=== PATIENT | female | born 1960 | race Caucasian/White ===

== ENCOUNTER 2025-04-21 05:05 | Day surgery (SDC) | payer OTHER ==
[2025-04-15 12:51] VITALS: BP 122/80
[~2025-04-21] VITALS: Ht 157.5 cm; Wt 74.8 kg
[~2025-04-21 05:05] MED LIST: ACTOS15 MG; AMBIEN10 MG PO; ATACAND16 MG PO; GLYXAMBI 25 MG1 EACH PO; LIPITOR20 MG; NEURONTIN300 MG PO; PEPCID AC20 MG; SINGULAIR4 M1; SYNTHROID50 MCG PO; ZYRTEC10 M3
[2025-04-21] MEDS ORDERED: METRONIDAZOLE/SODIUM CHLORIDE 500 MG/100 ML PIGGYBACK IV ONE ×3 (06:11→06:47)
[2025-04-21] MEDS ORDERED: CEFTRIAXONE SODIUM 2,000 MG VIAL ONE (06:47)
[2025-04-21] MEDS ORDERED: DIBUCAINE 30 GM TUBE ONE (07:21)
[2025-04-21] MEDS ORDERED: BUPIVACAINE HCL/MPF 0.5% 30ML VIAL ONE (07:21)
[2025-04-21] MEDS ORDERED: LIDOCAINE HCL 1%/EPINEPHRINE 20ML VIAL IJ ONE (07:22)
[2025-04-21] MEDS ORDERED: POVIDONE-IODINE 118 ML BOTT TOP ONE (07:22)
[2025-04-21] MEDS ORDERED: HEMOSTATIC MATRIX 1 KIT KIT TOP ONE (07:22)
[2025-04-21] MEDS ORDERED: PERCOCET 5-3251 EACH PO (07:58)
[2025-04-21] MEDS ORDERED: RECTICARE30 GM TOP (07:59)
== END 2025-04-21 13:45 | disposition home or self-care (01) ==
LOC: CIR.AMB 05:05
PROVIDERS: ATTEND Surgery
DX: K60.1 Chronic anal fissure (principal); Z91.040 Latex allergy status